=== PATIENT | female | born 1990 ===

== ENCOUNTER 2017-06-12 16:18 | Emergency (ER) | payer MEDICAID, OTHER ==
[2017-06-12] MEDS ORDERED: Sodium Chloride 0.9% 1,000 ML IV STA (16:51)
[2017-06-12 16:52] VITALS: RESP 18; TEMP 98
[2017-06-12 17:24] LABS: ALB/GLOB RATIO 1.4 (1.1-1.8); ALKALINE PHOSPHATASE 85 U/L (38-126); ALT/SGPT 29 U/L (7-56); AST/SGOT 29 U/L (14-36); BILIRUBIN,TOTAL 0.4 mg/dL (0.2-1.3); BLOOD UREA NITROGEN 10 mg/dL (7-21); CALCIUM 8.8 mg/dL (8.4-10.5); CARBON DIOXIDE 29 mmol/L (21-33); CHLORIDE 106 mmol/L (98-107); GFR AFRICAN-AMERICAN > 60; GLUCOSE,RANDOM 95 mg/dL (70-110); POTASSIUM 3.4 mmol/L (3.6-5.0); SODIUM 143 mmol/L (132-148); TOTAL PROTEIN 6.8 g/dL (5.8-8.3)
[2017-06-12 17:27] LABS: URINE BILIRUBIN NEGATIVE (NEGATIVE); URINE BLOOD LARGE (NEGATIVE); URINE GLUCOSE (UA) NEGATIVE (NEGATIVE); URINE KETONE NEGATIVE (NEGATIVE); URINE LEUKOCYTE ESTERASE NEGATIVE Leu/uL (NEGATIVE); URINE PROTEIN NEGATIVE mg/dL (<30 mg/dL); URINE UROBILINOGEN 0.2 E.U./dL (<1 E.U./dL)
[2017-06-12 17:27] LABS: BASO # 0.03 K/mm3 (0.0-2.0); BASO % 0.4 % (0.0-3.0); EOS # 0.1 (0.0-0.7); EOS % 1.4 % (1.5-5.0); GRAN # 3.55 (1.4-6.5); GRAN % 51.4 % (50.0-68.0); HEMATOCRIT 37.6 % (36.0-48.0); LYMPH # 2.7 (1.2-3.4); LYMPH % 39.2 % (22.0-35.0); MEAN CELL VOLUME 90.4 fl (80.0-105.0); MEAN CORPUSCULAR HEMOGLOBIN 31.3 pg (25.0-35.0); MEAN CORPUSCULAR HGB CONC 34.6 g/dl (31.0-37.0); MEAN PLATELET VOLUME 9.1 fl (7.0-11.0); MONO # 0.5 (0.1-0.6); MONO % 7.6 % (1.0-6.0); RED CELL DISTRIBUTION WIDTH 11.5 % (11.5-14.5); WHITE BLOOD COUNT 6.9 10^3/ul (4.5-11.0)
--- NOTE | 2017-06-12 17:34 | ED PDOC ---
Arrival/HPI - General Historian: Patient <Mirian Martinez - Last Filed: 06/12/17 21:12> <Cari Watters - Last Filed: 06/12/17 21:50> - General Chief Complaint: Dizziness/Lightheaded Time Seen by Provider: 06/12/17 16:20 - History of Present Illness Narrative History of Present Illness (Text): 06/12/17 17:23 27yr old female presents today with an episode of dizziness that came on suddenly and resolved spontaneously. pt states around 2:30pm today she was talking to someone and started to feel dizziness. pt states it lasted about 15 minutes and resolved. pt states she now has a slight headache. she denies fevers /chills. pt states she has been since with nasal congestion, sore throat and URI symptoms for which she completed zithromax. pt c/o left sided facial pressure. pt states she has had 10 lb weight loss since she has been sick. pt denies abdominal pain. no cp or sob. no other complaints. (Mirian Martinez) Past Medical History - Provider Review Nursing Documentation Reviewed: Yes - Travel History Have you recently traveled outside [place] w/in the past 3 mons?: No - Infectious Disease Hx of Infectious Diseases: None - Psychiatric Hx Substance Use: No - Surgical History Hx Section: Yes (x1) <Mirian Martinez - Last Filed: 06/12/17 21:12> Family/Social History - Physician Review Nursing Documentation Reviewed: Yes Family/Social History: Unknown Family HX Smoking Status: Current Some Days Smoker Hx Alcohol Use: Yes Frequency of alcohol use: Socially Hx Substance Use: No <Mirian Martinez - Last Filed: 06/12/17 21:12> Allergies/Home Meds <Mirian Martinez - Last Filed: 06/12/17 21:12> <Cari Watters - Last Filed: 06/12/17 21:50> Allergies/Adverse Reactions: Allergies No Known Allergies Allergy (Verified 06/12/17 16:31) Review of Systems - Review of Systems Constitutional: Weight Change. absent: Fatigue, Fevers Eyes: absent: Vision Changes, Photophobia, Eye Pain ENT: Sinus Congestion. absent: TMJ Pain, Sore Throat, Epistaxis Respiratory: absent: SOB, Cough Cardiovascular: absent: Chest Pain, Palpitations Gastrointestinal: absent: Abdominal Pain, Nausea, Vomiting Genitourinary Female: absent: Dysuria, Frequency, Hematuria Musculoskeletal: absent: Arthralgias, Back Pain, Neck Pain Skin: absent: Rash, Pruritis Neurological: Headache, Dizziness. absent: Focal Weakness, Gait Changes, Speech Changes, Facial Droop, Disequilibrium Psychiatric: absent: Anxiety, Depression, Suicidal Ideation <Mirian Martinez T - Last Filed: 06/12/17 21:12> Physical Exam Vital Signs Reviewed: Yes Temperature: Afebrile Blood Pressure: Normal Pulse: Regular Respiratory Rate: Normal Appearance: Positive for: Well-Appearing, Non-Toxic, Comfortable Pain Distress: None Mental Status: Positive for: Alert and Oriented X 3 - Systems Exam Head: Present: Atraumatic, Tenderness (+ ttp over left maxillary sinus) Pupils: Present: PERRL Extroacular Muscles: Present: EOMI Conjunctiva: Present: Normal. No: Injected Mouth: Present: Moist Mucous Membranes Pharnyx: Present: Normal. No: ERYTHEMA, EXUDATE, TONSILS ENLARGED, Peritonsilar Swelling, Uvular Deviation, Muffled/Hoarse Voice Nose (External): Present: Atraumatic Nose (Internal): Present: Normal Inspection Neck: Present: Normal Range of Motion, Trachea Midline. No: Meningeal Signs, MIDLINE TENDERNESS, Paraspinal Tenderness Respiratory/Chest: Present: Clear to Auscultation, Good Air Exchange. No: Respiratory Distress, Accessory Muscle Use Cardiovascular: Present: Regular Rate and Rhythm Abdomen: No: Tenderness Upper Extremity: Present: Normal ROM Lower Extremity: Present: Normal ROM Neurological: Present: GCS=15, Speech Normal, Motor Func Grossly Intact, Normal Sensory Function Skin: Present: Warm, Dry, Normal Color. No: Rashes Psychiatric: Present: Alert, Oriented x 3 <Mirian Martinez T - Last Filed: 06/12/17 21:12> Vital Signs Temp Pulse Resp BP Pulse Ox 06/12/17 20:11 60 18 114/71 100 06/12/17 18:15 65 18 121/75 98 06/12/17 16:52 98.0 F 66 18 123/86 98 06/12/17 16:29 98 F 66 16 123/86 99 Medical Decision Making <Mirian Martinez T - Last Filed: 06/12/17 21:12> - EKG Interpretation Interpreted by ED Physician: Yes <Cari Watters - Last Filed: 06/12/17 21:50> ED Course and Treatment: 06/12/17 17:47 27yr old female with dizziness that resolved. with left sided facial tenderness with hx of URI. cbc: wnl cmp: wnl head ct: FINDINGS: Brain: The white-watts differentiation is preserved demonstrating no acute territorial type infarct. No acute intracranial hemorrhage is seen. Midline shift: There is no midline shift. Ventricles: No ventriculomegaly. Bones/joints: The calvarium demonstrates no evidence for a depressed fracture. Soft tissues: No acute abnormality. Sinuses: There is mild mucosal thickening of scattered ethmoid air cells. No air -fluid levels within the paranasal sinuses. Mastoid air cells: No mastoid effusion. IMPRESSION: 1. No acute intracranial abnormality. 2. Paranasal sinus disease is noted above. ekg; sinus bradycardia at 57b/m no st elevations pt seen and evaluated by dr. watters; will d/c home with augmentin and allergra for sinusitis. impression; sinusitis augmentin 1 tablet twice daily allergra daily follow up with PMD within the next 2 days return if symptoms worsen,persist or if new symptoms develop. (Mirian Martinez) - Lab Interpretations Lab Results: 06/12/17 17:00 06/12/17 17:00 Lab Results 06/12/17 17:00: WBC 6.9, RBC 4.16, Hgb 13.0, Hct 37.6, MCV 90.4, MCH 31.3, MCHC 34.6, RDW 11.5, Plt Count 235, MPV 9.1, Gran % 51.4, Lymph % (Auto) 39.2 H, [place] % (Auto) 7.6 H, Eos % (Auto) 1.4 L, Baso % (Auto) 0.4, Gran # 3.55, Lymph # 2.7, [place] # 0.5, Eos # 0.1, Baso # 0.03 06/12/17 17:00: Sodium 143, Potassium 3.4 L, Chloride 106, Carbon Dioxide 29, Anion Gap 11, BUN 10, Creatinine 0.6 L, Est GFR ( Amer) > 60, Est GFR ( Non-Af Amer) > 60, Random Glucose 95, Calcium 8.8, Total Bilirubin 0.4, AST 29, ALT 29, Alkaline Phosphatase 85, Total Protein 6.8, Albumin 4.0, Globulin 2.9, Albumin/Globulin Ratio 1.4 06/12/17 16:50: Urine Color Yellow, Urine Appearance Sl cloudy, Urine pH 7.0, Ur Specific [place] <= 1.005, Urine Protein Negative, Urine Glucose (UA) Negative, Urine Ketones Negative, Urine Blood Large H, Urine Nitrate Negative, Urine Bilirubin Negative, Urine Urobilinogen 0.2, Ur Leukocyte Esterase Negative , Urine RBC 2 - 5, Urine WBC 1 - 3, Ur Epithelial Cells 1 - 3, Urine Bacteria Rare - RAD Interpretation Radiology Orders: 06/12/17 16:51 HEAD W/O CONTRAST [CT] Stat - EKG Interpretation EKG Interpretation (Text): 06/12/17 18:13 sinus kecia at 57 BPM.No ectopy,no acute STTW changes (Cari Watters) - Medication Orders Current Medication Orders: Discontinued Medications Sodium Chloride (Sodium Chloride 0.9%) 1,000 mls @ 999 mls/hr IV .Q1H1M STA Stop: 06/12/17 17:51 Last Admin: 06/12/17 17:03 Dose: 999 mls/hr eMAR Start Stop Document 06/12/17 17:03 EQ (Rec: 06/12/17 17:03 EQ [facility] [id number][place] Intravenous Solution Start Date 06/12/17 Start Time 17:03 Disposition/Present on Arrival - Present on Arrival Any Indicators Present on Arrival: No History of DVT/PE: No History of Uncontrolled Diabetes: No Urinary Catheter: No History of Decub. Ulcer: No History Surgical Site Infection Following: None - Disposition Have Diagnosis and Disposition been Completed?: Yes Patient Plan: Discharge <Mirian Martinez - Last Filed: 06/12/17 21:12> - Present on Arrival Any Indicators Present on Arrival: No - Disposition Have Diagnosis and Disposition been Completed?: Yes Disposition Time: 20:31 Patient Plan: Discharge <Cari Watters - Last Filed: 06/12/17 21:50> - Disposition Diagnosis: Sinusitis Disposition: HOME/ ROUTINE Patient Problems: Current Active Problems Problem Status Onset Sinusitis Acute Condition: GOOD Discharge Instructions (ExitCare): Sinusitis (ED) Print Language: MALAY Prescriptions: Amoxicillin/Clavulanate [Augmentin 875 MG-125 MG] 1 tab PO BID #14 tab Fexofenadine/Pseudoephedrine [Kavita-D 24 Hour Tablet] 1 each PO DAILY #7 tab.er.24h Referrals: [facility] [place] - Follow up with primary Forms: [employer] (Romansh)
[2017-06-12 17:39] LABS: URINE APPEARANCE SL CLOUDY (CLEAR); URINE COLOR YELLOW (YELLOW)
[2017-06-12 17:58] LABS: URINE BACTERIA RARE (NEG)
[2017-06-12 20:12] VITALS: BP 114/71; PULSE 60; O2SAT 100
--- NOTE | 2017-06-12 20:50 | CT ---
EXAM: CT Head Without Intravenous Contrast EXAM DATE/TIME: 06/12/2017 4:51 PM CLINICAL HISTORY: The patient age is 27 years old and is female; Pain and signs and symptoms; Dizziness; Headache; Headache not specified; Additional info: Dizziness, sinus tenderness, headache Facility exam id and description: Ct heads head w/o contrast TECHNIQUE: Axial computed tomography images of the head/brain without intravenous contrast. All CT scans at this facility use one or more dose reduction techniques, viz.: automated exposure control; ma/kV adjustment per patient size (including targeted exams where dose is matched to indication; i.e. head); or iterative reconstruction technique. COMPARISON: No relevant prior studies available. FINDINGS: Brain: The white-watts differentiation is preserved demonstrating no acute territorial type infarct. No acute intracranial hemorrhage is seen. Midline shift: There is no midline shift. Ventricles: No ventriculomegaly. Bones/joints: The calvarium demonstrates no evidence for a depressed fracture. Soft tissues: No acute abnormality. Sinuses: There is mild mucosal thickening of scattered ethmoid air cells. No air-fluid levels within the paranasal sinuses. Mastoid air cells: No mastoid effusion. IMPRESSION: 1. No acute intracranial abnormality. 2. Paranasal sinus disease is noted above.
[2017-06-12] MEDS ORDERED: Amoxicillin-Clav 875-125 mg Tab PO STA (21:08)
--- NOTE | 2017-06-13 23:08 | CARD ---
APPROVED REPORT EKG Measurement Heart [id number] <Conclusion> Sinus bradycardia Low voltage QRS Cannot rule out Anterior infarct, age undetermined Abnormal ECG
== END 2017-06-12 20:31 | disposition home or self-care (01) ==
LOC: ED 16:18
DX: J32.9 Chronic sinusitis, unspecified (principal); F17.210 Nicotine dependence, cigarettes, uncomplicated
CPT/HCPCS: 70450; 80053; 81001; 85025; 93005; 99285; J7040

== ENCOUNTER 2017-08-18 03:27 | Inpatient (IN) | payer MEDICAID, OTHER ==
--- NOTE | 2017-08-18 03:42 | ED PDOC ---
Arrival/HPI - General Time Seen by Provider: 08/18/17 03:28 Historian: EMS EM Caveat: Uncooperative - History of Present Illness Narrative History of Present Illness (Text): 08/18/17 03:35 27 year old female, presents to the emergency department by EMS for suicidal ideation. Per EMS, patient has been cutting herself and may have taken about 8 unknown pills. Patient upon arrival was agitated and attempted to hit the wall. Patient will not calm down and will not communicate with me. Patient is sedated and put in 4 point restraints due to violent behavior. HPI and ROS limited due to patient being uncooperative. PMD: Dr. Everett Marshall Time/Duration: 1/2 hour Symptom Onset: Sudden Past Medical History - Provider Review Nursing Documentation Reviewed: Yes - Infectious Disease Hx of Infectious Diseases: None - Psychiatric Hx Substance Use: No - Surgical History Hx Section: Yes (x1) Family/Social History - Physician Review Nursing Documentation Reviewed: Yes Family/Social History: No Known Family HX Smoking Status: Current Some Days Smoker Hx Alcohol Use: Yes Hx Substance Use: No Allergies/Home Meds Allergies/Adverse Reactions: Allergies No Known Allergies Allergy (Verified 06/12/17 16:31) Home Medications: Home Meds Medication Instructions Recorded Confirmed Unobtainable 08/18/17 08/18/17 Review of Systems - Review of Systems Systems not reviewed;Unavailable: Uncooperative Psychiatric: Suicidal Ideation Physical Exam Vital Signs Reviewed: Yes Vital Signs Pulse Resp BP Pulse Ox 08/18/17 11:59 80 17 116/74 98 08/18/17 09:45 88 18 110/73 98 08/18/17 07:22 98 H 18 107/55 L 97 08/18/17 05:29 90 18 118/88 96 Blood Pressure: Normal Pulse: Regular Respiratory Rate: Normal Appearance: Positive for: Well-Appearing, Non-Toxic Pain Distress: None Mental Status: Positive for: Agitated - Systems Exam Head: Present: Atraumatic, Normocephalic Pupils: Present: PERRL Extroacular Muscles: Present: EOMI Conjunctiva: Present: Normal Mouth: Present: Moist Mucous Membranes Neck: Present: Normal Range of Motion Respiratory/Chest: Present: Clear to Auscultation, Good Air Exchange. No: Respiratory Distress, Accessory Muscle Use Cardiovascular: Present: Regular Rate and Rhythm, Normal S1, S2. No: Murmurs Abdomen: Present: Normal Bowel Sounds. No: Tenderness, Distention, Peritoneal Signs Back: Present: Normal Inspection Upper Extremity: Present: Normal Inspection, Other ((+) superficial cut to the right wrist). No: Cyanosis, Edema Lower Extremity: Present: Normal Inspection. No: Edema Neurological: Present: GCS=15, CN II-XII Intact, Speech Normal Skin: Present: Warm, Dry, Normal Color. No: Rashes Psychiatric: Present: Alert, Oriented x 3, Normal Insight, Normal Concentration Medical Decision Making ED Course and Treatment: 08/18/17 03:35 Impression: 27 year old female presents for suicidal ideation. Plan: -- EKG -- Labs -- Chest X-ray -- Ativan -- Geodon Inj -- Restraints -- HCG, Qualt Urine -- Urinalysis -- Reassess and disposition Prior Visits: Notes and results from previous visits were reviewed. Patient was last seen in the emergency department on 06/12/17 presents complaining of dizziness today that resolved. Patient was discharged. Progress Notes: 08/18/17 03:35 Nabila Raymond was called due to patients violent behavior. Patient was attempting to hit the wall. EKG shows Sinus tachycardia at 106 BPM with non-specific ST/T changes. Normal axis. Interpreted by me. 08/18/17 05:30 CXR Impression: As read by me, NAD - Lab Interpretations Lab Results: 08/18/17 04:00 08/18/17 04:00 Lab Results 08/18/17 04:00: Urine HCG, Qual Negative 08/18/17 04:00: Alcohol, Quantitative 153 H 08/18/17 04:00: Salicylates < 1 L, Acetaminophen < 10.0 L 08/18/17 04:00: Urine Opiates Screen Negative, Urine Methadone Screen Negative, Ur Barbiturates Screen Negative, Ur Phencyclidine Scrn Negative, Ur Amphetamines Screen Negative, U Benzodiazepines Scrn Negative, U Oth Cocaine Metabols Negative, U Cannabinoids Screen Negative 08/18/17 04:00: Sodium 146, Potassium 3.4 L, Chloride 109 H, Carbon Dioxide 18 L , Anion Gap 22 H, BUN 12, Creatinine 0.8, Est GFR ( Amer) > 60, Est GFR ( Non-Af Amer) > 60, Random Glucose 79, Calcium 8.9, Total Bilirubin 0.3, AST 48 H D, ALT 39, Alkaline Phosphatase 94, Total Protein 7.8, Albumin 4.4, Globulin 3.4, Albumin/Globulin Ratio 1.3 08/18/17 04:00: Urine Color Yellow, Urine Appearance Clear, Urine pH 6.0, Ur Specific [place] 1.015, Urine Protein Negative, Urine Glucose (UA) Negative, Urine Ketones Negative, Urine Blood Small H, Urine Nitrate Negative, Urine Bilirubin Negative, Urine Urobilinogen 0.2, Ur Leukocyte Esterase Negative, Urine RBC 1 - 3, Urine WBC 0 - 2, Ur Epithelial Cells 1 - 3 08/18/17 04:00: WBC 8.5 D, RBC 4.34, Hgb 13.5, Hct 39.7, MCV 91.5, MCH 31.1, MCHC 34.0, RDW 11.7, Plt Count 235, MPV 9.6, Gran % 49.7 L, Lymph % (Auto) 41.4 H, [place] % (Auto) 8.0 H, Eos % (Auto) 0.8 L, Baso % (Auto) 0.1, Gran # 4.20, Lymph # 3.5 H, [place] # 0.7 H, Eos # 0.1, Baso # 0.01 I have reviewed the lab results: Yes - RAD Interpretation Radiology Orders: 08/18/17 03:31 CHEST PORTABLE [RAD] Stat - EKG Interpretation Interpreted by ED Physician: Yes Type: 12 lead EKG - Medication Orders Current Medication Orders: Acetaminophen (Tylenol 325mg Tab) 650 mg PO Q6H PRN PRN Reason: Pain, moderate (4-7) Fluoxetine HCl (Prozac) 20 mg PO DAILY JESSICA Lorazepam (Ativan) 2 mg PO Q6H PRN; Protocol PRN Reason: Anxiety Quetiapine Fumarate (Seroquel) 50 mg PO HS JESSICA PRN Reason: Protocol Ziprasidone (Geodon Cap) 20 mg PO Q6H PRN; Protocol PRN Reason: Psychosis Ziprasidone (Geodon Inj) 20 mg IM Q6H PRN; Protocol PRN Reason: Psychosis Discontinued Medications Lorazepam (Ativan) 2 mg IM STAT STA Stop: 08/18/17 03:31 Last Admin: 08/18/17 03:30 Dose: 2 mg IM Administration Charges Document 08/18/17 03:30 YP (Rec: 08/18/17 03:45 YP [id number]) Injection Site MAR Injection Site Left Deltoid Charges for Administration # of IM Administrations 1 Ziprasidone (Geodon Inj) 20 mg IM STAT STA Stop: 08/18/17 03:31 Last Admin: 08/18/17 03:35 Dose: 20 mg IM Administration Charges Document 08/18/17 03:35 YP (Rec: 08/18/17 03:45 YP [id number]) Injection Site MAR Injection Site Right Vastus Lateralis Charges for Administration # of IM Administrations 1 - Scribe Statement The provider has reviewed the documentation as recorded by the Reva Decker Provider Scribe Attestation: All medical record entries made by the Reva were at my direction and personally dictated by me. I have reviewed the chart and agree that the record accurately reflects my personal performance of the history, physical exam, medical decision making, and the department course for this patient. I have also personally directed, reviewed, and agree with the discharge instructions and disposition. Disposition/Present on Arrival - Present on Arrival Any Indicators Present on Arrival: No History of DVT/PE: No History of Uncontrolled Diabetes: No Urinary Catheter: No History Surgical Site Infection Following: None - Disposition Have Diagnosis and Disposition been Completed?: Yes Diagnosis: Major depressive disorder, Psychosis Disposition: HOSPITALIZED Disposition Time: 07:00 Patient Problems: Current Active Problems Problem Status Onset Major depressive disorder Acute Psychosis Acute Condition: STABLE
[2017-08-18 05:08] LABS: BASO # 0.01 K/mm3 (0.0-2.0); BASO % 0.1 % (0.0-3.0); EOS # 0.1 (0.0-0.7); EOS % 0.8 % (1.5-5.0); GRAN # 4.2 (1.4-6.5); GRAN % 49.7 % (50.0-68.0); HEMATOCRIT 39.7 % (36.0-48.0); LYMPH # 3.5 (1.2-3.4); LYMPH % 41.4 % (22.0-35.0); MEAN CELL VOLUME 91.5 fl (80.0-105.0); MEAN CORPUSCULAR HEMOGLOBIN 31.1 pg (25.0-35.0); MEAN PLATELET VOLUME 9.6 fl (7.0-11.0); MONO # 0.7 (0.1-0.6); RED CELL DISTRIBUTION WIDTH 11.7 % (11.5-14.5); WHITE BLOOD COUNT 8.5 10^3/ul (4.5-11.0)
[2017-08-18 05:16] LABS: URINE BILIRUBIN NEGATIVE (NEGATIVE); URINE BLOOD SMALL (NEGATIVE); URINE GLUCOSE (UA) NEGATIVE (NEGATIVE); URINE KETONE NEGATIVE (NEGATIVE); URINE LEUKOCYTE ESTERASE NEGATIVE Leu/uL (NEGATIVE); URINE PROTEIN NEGATIVE mg/dL (<30 mg/dL); URINE UROBILINOGEN 0.2 E.U./dL (<1 E.U./dL)
[2017-08-18 05:21] LABS: URINE APPEARANCE CLEAR (CLEAR); URINE COLOR YELLOW (YELLOW)
[2017-08-18 05:29] LABS: ALB/GLOB RATIO 1.3 (1.1-1.8); ALKALINE PHOSPHATASE 94 U/L (38-126); ALT/SGPT 39 U/L (7-56); AST/SGOT 48 U/L (14-36); BILIRUBIN,TOTAL 0.3 mg/dL (0.2-1.3); BLOOD UREA NITROGEN 12 mg/dL (7-21); CALCIUM 8.9 mg/dL (8.4-10.5); CARBON DIOXIDE 18 mmol/L (21-33); CHLORIDE 109 mmol/L (98-107); GFR AFRICAN-AMERICAN > 60; GLUCOSE,RANDOM 79 mg/dL (70-110); POTASSIUM 3.4 mmol/L (3.6-5.0); SODIUM 146 mmol/L (132-148); TOTAL PROTEIN 7.8 g/dL (5.8-8.3)
[2017-08-18 05:42] LABS: URINE WBC 0 - 2 /hpf (0-6)
--- NOTE | 2017-08-18 07:33 | ED PDOC ---
Physical Exam Vital Signs Reviewed: Yes Vital Signs Pulse Resp BP Pulse Ox 08/18/17 11:59 80 17 116/74 98 08/18/17 09:45 88 18 110/73 98 08/18/17 07:22 98 H 18 107/55 L 97 08/18/17 05:29 90 18 118/88 96 Blood Pressure: Normal Pulse: Regular Respiratory Rate: Normal Appearance: Positive for: Well-Appearing, Non-Toxic Pain Distress: None Mental Status: Positive for: other (agitated, resting in bed) - Systems Exam Head: Present: Atraumatic, Normocephalic Pupils: Present: PERRL Extroacular Muscles: Present: EOMI Conjunctiva: Present: Normal Nose (Internal): Present: Normal Inspection Neck: Present: Normal Range of Motion Respiratory/Chest: Present: Clear to Auscultation, Good Air Exchange Cardiovascular: Present: Regular Rate and Rhythm, Normal S1, S2 Abdomen: Present: Normal Bowel Sounds Back: Present: Normal Inspection Upper Extremity: Present: Normal ROM, NORMAL PULSES, Other (noted distal left forearm skin abrasion wounds) Lower Extremity: Present: Normal Inspection Neurological: Present: GCS=15, CN II-XII Intact, Speech Normal Skin: Present: Warm, Normal Color Psychiatric: Present: Alert, Oriented x 3, Other (flat/sad affect) Medical Decision Making ED Course and Treatment: 08/18/17 07:32 Case signed out to me. Awaiting sobriety, PES evaluation and final disposition. 08/18/17 13:49 pt is clinically sober and awake/alert, NAD pt remained depressed PES evaluated pt at bedside, recommend pt for admission/psych txt/mgt pt agrees and voluntarily will be admitted to the hospital for further psych stabilization PT IS MEDICALLY CLEARED FOR PSYCH EVAL/ADMISSION Reassessment Condition: Improving,but remains with symptoms - Lab Interpretations Lab Results: 08/18/17 04:00 08/18/17 04:00 Lab Results 08/18/17 04:00: Urine HCG, Qual Negative 08/18/17 04:00: Alcohol, Quantitative 153 H 08/18/17 04:00: Salicylates < 1 L, Acetaminophen < 10.0 L 08/18/17 04:00: Urine Opiates Screen Negative, Urine Methadone Screen Negative, Ur Barbiturates Screen Negative, Ur Phencyclidine Scrn Negative, Ur Amphetamines Screen Negative, U Benzodiazepines Scrn Negative, U Oth Cocaine Metabols Negative, U Cannabinoids Screen Negative 08/18/17 04:00: Sodium 146, Potassium 3.4 L, Chloride 109 H, Carbon Dioxide 18 L , Anion Gap 22 H, BUN 12, Creatinine 0.8, Est GFR ( Amer) > 60, Est GFR ( Non-Af Amer) > 60, Random Glucose 79, Calcium 8.9, Total Bilirubin 0.3, AST 48 H D, ALT 39, Alkaline Phosphatase 94, Total Protein 7.8, Albumin 4.4, Globulin 3.4, Albumin/Globulin Ratio 1.3 08/18/17 04:00: Urine Color Yellow, Urine Appearance Clear, Urine pH 6.0, Ur Specific [place] 1.015, Urine Protein Negative, Urine Glucose (UA) Negative, Urine Ketones Negative, Urine Blood Small H, Urine Nitrate Negative, Urine Bilirubin Negative, Urine Urobilinogen 0.2, Ur Leukocyte Esterase Negative, Urine RBC 1 - 3, Urine WBC 0 - 2, Ur Epithelial Cells 1 - 3 08/18/17 04:00: WBC 8.5 D, RBC 4.34, Hgb 13.5, Hct 39.7, MCV 91.5, MCH 31.1, MCHC 34.0, RDW 11.7, Plt Count 235, MPV 9.6, Gran % 49.7 L, Lymph % (Auto) 41.4 H, [place] % (Auto) 8.0 H, Eos % (Auto) 0.8 L, Baso % (Auto) 0.1, Gran # 4.20, Lymph # 3.5 H, [place] # 0.7 H, Eos # 0.1, Baso # 0.01 elevated etoh I have reviewed the lab results: Yes Interpretation: Abnormal lab values (elevated ETOH) - RAD Interpretation Radiology Orders: 08/18/17 03:31 CHEST PORTABLE [RAD] Stat HISTORY: Ethanol intoxication. Portable study 05:25. COMPARISON: No prior. FINDINGS: LUNGS: No active pulmonary disease. PLEURA: No significant pleural effusion identified, no pneumothorax apparent. CARDIOVASCULAR: Normal. OSSEOUS STRUCTURES: No significant abnormalities. VISUALIZED UPPER ABDOMEN: Normal. OTHER FINDINGS: None. IMPRESSION: No active disease. - Medication Orders Current Medication Orders: Discontinued Medications Lorazepam (Ativan) 2 mg IM STAT STA Stop: 08/18/17 03:31 Last Admin: 12/25/17 03:30 Dose: 2 mg IM Administration Charges Document 08/18/17 03:30 YP (Rec: 08/18/17 03:45 YP [id number]) Injection Site MAR Injection Site Left Deltoid Charges for Administration # of IM Administrations 1 Ziprasidone (Geodon Inj) 20 mg IM STAT STA Stop: 08/18/17 03:31 Last Admin: 08/18/17 03:35 Dose: 20 mg IM Administration Charges Document 08/18/17 03:35 YP (Rec: 08/18/17 03:45 YP [id number]) Injection Site MAR Injection Site Right Vastus Lateralis Charges for Administration # of IM Administrations 1 - Scribe Statement The provider has reviewed the documentation as recorded by the Reva Wheeler Provider Scribe Attestation: All medical record entries made by the Scribnghia were at my direction and personally dictated by me. I have reviewed the chart and agree that the record accurately reflects my personal performance of the history, physical exam, medical decision making, and the department course for this patient. I have also personally directed, reviewed, and agree with the discharge instructions and disposition. Disposition/Present on Arrival - Present on Arrival Any Indicators Present on Arrival: No History of DVT/PE: No History of Uncontrolled Diabetes: No Urinary Catheter: No History of Decub. Ulcer: No History Surgical Site Infection Following: None - Disposition Have Diagnosis and Disposition been Completed?: Yes Diagnosis: Major depressive disorder, Psychosis Disposition: HOSPITALIZED Disposition Time: 12:30 Patient Plan: Admission Patient Problems: Current Active Problems Problem Status Onset Major depressive disorder Acute Psychosis Acute Condition: STABLE
[2017-08-18 10:45] VITALS: O2SAT 98
--- NOTE | 2017-08-18 11:04 | RAD ---
HISTORY: Ethanol intoxication. Portable study 05:25. COMPARISON: No prior. FINDINGS: LUNGS: No active pulmonary disease. PLEURA: No significant pleural effusion identified, no pneumothorax apparent. CARDIOVASCULAR: Normal. OSSEOUS STRUCTURES: No significant abnormalities. VISUALIZED UPPER ABDOMEN: Normal. OTHER FINDINGS: None. IMPRESSION: No active disease.
--- NOTE | 2017-08-18 15:19 | PCM.BM ---
<Garrett Tijerina - Last Filed: 08/18/17 15:13> Treatment Plan Problems - Problems identified on initial assessmt SUICIDE RISK Date Initiated: 08/18/17 Time Initiated: 15:14 Assessment reference: HP, NA Status: Active MEDICATION NONADHERENCE Date Initiated: 08/18/17 Time Initiated: 15:20 Assessment reference: HP, Other Status: Active HELPLESSNESS/ HOPELESSNESS Date Initiated: 08/18/17 Time Initiated: 15:22 Assessment reference: HP, NA Status: Active Treatment assets and liabiliti Patient Assests: cooperative, physically healthy, good support system, negotiates basic needs, good interpersonal skills Patient Liabilities: live alone, substance abuse - Milieu Protocol Maintain good personal hygiene: daily Encourage regular showers, daily Remind patient to perform daily oral care, daily Assist patient to perform ADL's Maintain personal safety: daily Educate patient to report safety concerns to staff, daily Monitor environment for contraband/sharps Medication safety: Monitor for expected outcome, potential side effects: daily, Assess barriers to learning: daily, Assess readiness for medication education: daily Discharge/Continuing Care - Education Needs Education Needs: Patient Medication, Patient Diagnosis/Disease Process, Patient Coping Skills, Patient Community resources, Patient Uses of Medical Equipment, Patient Personal Hygiene/Grooming, Patient Aftercare Safety Plan - Discharge Discharge Criteria: Free of Suicidal thoughts, Free of agitation, Normal sleep pattern <Tiffanie Mtz - Last Filed: 08/19/17 13:44> Treatment Plan Problems - Problems identified on initial assessmt SUICIDE RISK Date Initiated: 08/18/17 Time Initiated: 15:14 Assessment reference: HP, NA Status: Active MEDICATION NONADHERENCE Date Initiated: 08/18/17 Time Initiated: 15:20 Assessment reference: HP, Other Status: Active HELPLESSNESS/ HOPELESSNESS Date Initiated: 08/18/17 Time Initiated: 15:22 Assessment reference: HP, NA Status: Active HELPLESSNESS/ HOPLESSNESS Date Initiated: 08/18/17 Time Initiated: 15:22 Assessment reference: HP, NA <Cari Ashraf - Last Filed: 08/19/17 21:26> - Diagnosis (1) Major depressive disorder Status: Acute Interventions: Psychoeducation Monitor closely for safety Psychopharmacology/adjustment of medications as needed/ monitoring possible side effects Evaluate pt on daily basis Compliance with medications and follow up appointments Suicide and homicide risk assessment and prevention Relapse prevention Reduction of symptoms Improve functional status Family involvement As outpatient: cognitive behavioral therapy 08/19/17 20:39 (2) Alcohol abuse Status: Acute Interventions: Maintaining sobriety Relapse prevention Possible rehabilitation Motivational interviewing 12-step programs: AA meetings 08/19/17 21:26 <Asia Aponte - Last Filed: 08/20/17 08:30> Family Contact Family involvement: Famliy/SO not involved Family contact: Patient declines to allow family contact at present
[2017-08-19 07:34] VITALS: TEMP 98.2
[2017-08-19 07:45] LABS: GLUCOSE,FASTING 87 mg/dL (65-110)
[2017-08-19 07:49] LABS: CHOLESTEROL 144 mg/dL (130-200)
[2017-08-19 08:02] LABS: FREE T4 0.84 ng/dL (0.78-2.19)
[2017-08-19 08:15] LABS: THYROID STIMULATING HORMONE 0.6 mIU/mL (0.46-4.68)
--- NOTE | 2017-08-19 17:33 | CARD ---
APPROVED REPORT EKG Measurement Heart [id number] CT [id number] [id number] <Conclusion> Sinus tachycardia Otherwise normal ECG
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
[2017-08-20] MEDS ORDERED: Potassium Chloride 20 mEq ER Tab PO ONE (04:58)
[2017-08-20 07:33] VITALS: BP 113/68; PULSE 65; RESP 20
[2017-08-20 08:06] LABS: BLOOD UREA NITROGEN 15 mg/dL (7-21); CALCIUM 8.4 mg/dL (8.4-10.5); CARBON DIOXIDE 25 mmol/L (21-33); CHLORIDE 105 mmol/L (98-107); GFR AFRICAN-AMERICAN > 60; GLUCOSE,RANDOM 86 mg/dL (70-110); SODIUM 138 mmol/L (132-148)
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
== END 2017-08-20 14:43 | disposition home or self-care (01) | DRG 430 ==
LOC: ED 03:27 → ERH 12:25 → PSYC 13:16
PROVIDERS: ADMIT Psychiatry & Neurology Psychiatry; ATTEND Psychiatry & Neurology Psychiatry
DX: F33.2 Major depressive disorder, recurrent severe without psychotic features (principal); R45.851 Suicidal ideations; Z78.1 Physical restraint status; F29 Unspecified psychosis not due to a substance or known physiological condition; F10.10 Alcohol abuse, uncomplicated; F17.210 Nicotine dependence, cigarettes, uncomplicated; F43.20 Adjustment disorder, unspecified; R40.2412 Glasgow coma scale score 13-15, at arrival to emergency department; R00.0 Tachycardia, unspecified